=== PATIENT | male | born 1990 | race American Indian/Alaskan Native ===

== ENCOUNTER 2017-05-28 22:11 | Emergency (ER) | payer SELFPAY ==
[2017-05-28 22:31] VITALS: BP 189/117
[2017-05-28] MEDS: XYLOCAINE 1% MPF 5 mL INFILTRATI ONE (23:00)
--- NOTE | 2017-05-28 23:38 | Emergency Department Report ---
ED Laceration HPI - HPI Chief Complaint: Wound/Laceration Stated Complaint: LAC RT 5TH DIGIT Time Seen by Provider: 05/28/17 22:58 Occurred When: Today Tetanus Status: Not up to Date Laceration Symptoms: Yes Pain, No Foreign Body Sensation, No Numbness, No Weakness Other History: Patient is a 27-year-old male presents with laceration to her right fifth digit. Patient states earlier about 2 hours ago he was moving some furniture truck and part of the truck and caught his finger and lacerated. Patient's is minimal bleeding for a while and bleeding stopped. Patient states last tetanus was probably around 2009. He denies foreign object in the hand. He denies fevers chills nausea vomiting or any medical problems. ED Review of Systems ROS: Stated complaint: LAC RT 5TH DIGIT Other details as noted in HPI Constitutional: denies: chills, fever Eyes: denies: eye pain, eye discharge, vision change ENT: denies: ear pain, throat pain Respiratory: denies: cough, shortness of breath, wheezing Cardiovascular: denies: chest pain, palpitations Endocrine: no symptoms reported Gastrointestinal: denies: abdominal pain, nausea, diarrhea Genitourinary: denies: urgency, dysuria Musculoskeletal: denies: back pain, joint swelling, arthralgia Skin: denies: rash, lesions Neurological: denies: headache, weakness, paresthesias Psychiatric: denies: anxiety, depression Hematological/Lymphatic: denies: easy bleeding, easy bruising ED Past Medical Hx - Past Medical History Previous Medical History?: No - Surgical History Past Surgical History?: No - Social History Smoking Status: Current Every Day Smoker Substance Use Type: None - Medications Home Medications: Home Medications Medication Instructions Recorded Confirmed Last Taken Type Cephalexin [Keflex] 500 mg PO BID #10 capsule 05/28/17 Unknown Rx Ibuprofen [Motrin] 800 mg PO Q8HR PRN #20 tablet 05/28/17 Unknown Rx Laceration Physical Exam - Exam General: Vital signs noted. No distress. Alert and acting appropriately. Laceration Location: Upper Extremity Laceration Exam: Yes Normal Distal CMS, No Foreign Body, No Exposed Tendon, Vessel, or Nerve, No Tendon Injury ED Course Vital Signs 05/28/17 22:23 Temperature 98.7 F Respiratory 18 Rate Blood Pressure 189/117 O2 Sat by Pulse 98 Oximetry - Laceration /Wound Repair Right Anterior Finger Wound Location: upper extremity Wound's Depth, Shape: superficial, linear Wound Explored: clean Irrigated w/ Saline (ccs): 100 Betadine Prep?: Yes Anesthesia: 1% Lidocaine Volume Anesthetic (ccs): 3 Wound Repaired With: sutures Suture Size/Type: 3:0 Number of Sutures: 6 Layer Closure?: No Sterile Dressing Applied?: Yes ED Medical Decision Making - Medical Decision Making 27-year-old male presents with laceration to the finger The 3cm laceration wound was prepped and draped in sterile fashion. Anesthesia was achieved with 3mL of 1% lidocaine. The wound was irrigated with 100cc NS and explored. There were no foreign bodies The wound was reapproximated in 1 layer with 6 sutures suing with six 3-0 Vicryl sutures in the dermis with interrupted sutures percutaneously. There was excellent reapproximation of the wound edges. The patient tolerated the procedure without complication. Discussed the patient acute want care Discussed to follow up with primary care within a week Vital signs are normal patient is in no acute distress Tetanus booster administered prior to discharge. Critical care attestation.: If time is entered above; I have spent that time in minutes in the direct care of this critically ill patient, excluding procedure time. ED Disposition Clinical Impression: Finger laceration Disposition: [id number] TO HOME OR SELFCARE Is pt being admited?: No Does the pt Need Aspirin: No Condition: Stable Instructions: Suture Care (ED), Acute Wound Care (ED), Finger Laceration (ED), Absorbable Suture Care (ED) Additional Instructions: Make sure to follow up with the primary care physician as discussed. Take all your medications as you've been prescribed. If you have any worsening symptoms or develop new symptoms please return to ED immediately. Prescriptions: Cephalexin [Keflex] 500 mg PO BID #10 capsule Ibuprofen [Motrin] 800 mg PO Q8HR PRN #20 tablet PRN Reason: Pain Referrals: MEAGAN LIMON MD [Primary Care Provider] - 3-5 Days Forms: Accompanied Note, Work/School Release Form(ED)
[2017-05-29] MEDS: BOOSTRIX IM ONE (00:25)
== END 2017-05-29 01:30 | disposition home or self-care (01) ==
LOC: ED 22:11
DX: S61.216A Laceration without foreign body of right little finger without damage to nail, initial encounter (principal); F17.200 Nicotine dependence, unspecified, uncomplicated; W23.1XXA Caught, crushed, jammed, or pinched between stationary objects, initial encounter; Y93.89 Activity, other specified; Y92.89 Other specified places as the place of occurrence of the external cause; Y99.8 Other external cause status
CPT/HCPCS: 90471; 90715; 99282